=== PATIENT | female | born 1995 | race Caucasian/White ===

== ENCOUNTER 2019-12-09 09:59 | Emergency (ER) | payer BC, OTHER ==
[~2019-12-09] VITALS: Ht 182.9 cm; Wt 90.7 kg
[2019-12-09] MEDS ORDERED: SPIR50TA PO (10:12)
[2019-12-09] MEDS ORDERED: PROCHLORPERAZINE EDISYLATE 10 MG/2 ML VIAL IV ONE (10:15)
[2019-12-09] MEDS ORDERED: KETOROLAC TROMETHAMINE 30 MG INJ IVP ONE (10:15)
[2019-12-09] MEDS ORDERED: IV NORMAL SALINE 1000 ML BAG IV ONE (10:15)
[2019-12-09] MEDS ORDERED: PROCHLORPERAZINE EDISYLATE 10 MG/2 ML VIAL ONE (10:18)
[2019-12-09] MEDS ORDERED: KETOROLAC TROMETHAMINE 30 MG INJ ONE (10:18)
[2019-12-09] MEDS ORDERED: diphenhydrAMINE 50 MG/1 ML VIAL ONE (10:37)
[2019-12-09] MEDS ORDERED: diphenhydrAMINE 50 MG/1 ML VIAL IV ONE (10:45)
--- NOTE | 2019-12-09 11:50 | NUR ---
PT WAS EVALUATED BY DR MOSQUERA. PT WAS D/C'd TO HOME. D/CINSTRUCTIONS GIVEN TO THE PT BY DR MOSQUERA.
[2019-12-09 11:52] VITALS: BP 141/69
== END 2019-12-09 12:04 | disposition home or self-care (01) ==
LOC: ER 09:59
DX: G43.909 Migraine, unspecified, not intractable, without status migrainosus (principal); Z82.0 Family history of epilepsy and other diseases of the nervous system; F11.10 Opioid abuse, uncomplicated
CPT/HCPCS: 96361; 96374; 96375; 99284; J0780; J1200; J1885; A4663; J7030